=== PATIENT | male | born 1940 | race Caucasian/White ===

== ENCOUNTER 2019-06-22 10:44 | Outpatient (CLI) | payer MEDICARE, OTHER, SELFPAY ==
--- NOTE | ~2019-06-22 | XR_ITS ---
EXAMINATION: XR abdomen/kub 1V EXAM DATE: 06/22/2019 11:12 INDICATION: Right-sided lithotripsy 2 weeks ago. TECHNIQUE: Frontal projection of the upper abdomen, frontal projection lower abdomen/pelvis for inter pretation. Comparison is made to prior examination from 06/09/2019. FINDINGS: There is moderate to large amount of stool obscuring most of the right kidney. Density pro jecting over right kidney, could be within stool or nephrolithiasis. There are 3 persistent left-side d kidney stones suspected. Nonobstructive bowel gas pattern. Lung bases unremarkable. Ankylosing spon dylitis. IMPRESSION: 1. Right kidney obscured, possible right nephrolithiasis identified. 2. Left nephrolithiasis unchanged. Reviewed, dictated and finalized at location B. 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
== END 2019-06-22 10:45 | disposition home or self-care (01) ==
PROVIDERS: Visit Provider Urology
DX: N20.0 Calculus of kidney (principal)
CPT/HCPCS: 74018

== ENCOUNTER 2019-07-13 10:22 | Outpatient (CLI) | payer MEDICARE, OTHER, SELFPAY ==
--- NOTE | ~2019-07-13 | XR_ITS ---
XR abdomen/kub 1V 07/13/2019 10:38 Indication: Renal stones Procedure: KUB Comparison: Comparison to multiple prior studies sequentially, with oldest reviewed study dated 06/22. Findings: There are multiple bilateral renal stones. Bowel gas pattern is nonobstructive. No definite stones are identified in the expected course of ureters. There is diffuse idiopathic skeletal hypero stosis (DISH) of the thoracic spine. Impression: 1: Stable bilateral nephrolithiasis. Reviewed, dictated and finalized at location A. [employer] FIRST ASSISTANT Impression: 1: Stable bilateral nephrolithiasis.
== END 2019-07-13 10:23 | disposition home or self-care (01) ==
PROVIDERS: Visit Provider Urology
DX: N20.0 Calculus of kidney (principal)
CPT/HCPCS: 74018

== ENCOUNTER 2019-08-01 15:33 | Outpatient (CLI) | payer MEDICARE, OTHER, SELFPAY ==
--- NOTE | ~2019-08-01 | XR_ITS ---
EXAMINATION: XR abdomen/kub 1V EXAM DATE: 08/01/2019 15:48 INDICATION: Kidney stones. TECHNIQUE: Frontal projection of the upper abdomen, frontal projection lower abdomen/pelvis for inter pretation. Comparison is made to prior examination from 07/13/2019. FINDINGS: Bilateral nephrolithiasis is reidentified, although obscured by overlying bowel gas. There is no organomegaly. Moderate amount of colonic gas. Fused sacroiliac joints and flowing osteophytes, patient probably has ankylosing spondylitis. Lung bases unremarkable. IMPRESSION: 1. Bilateral nephrolithiasis, obscured by moderate colonic stool. 2. Ankylosing spondylitis. Reviewed, dictated and finalized at location A.
== END 2019-08-01 15:34 | disposition home or self-care (01) ==
LOC: ANHIMG 15:34
PROVIDERS: Visit Provider Urology
DX: N20.0 Calculus of kidney (principal); M45.9 Ankylosing spondylitis of unspecified sites in spine
CPT/HCPCS: 74018

== ENCOUNTER 2019-08-03 09:08 | Outpatient (CLI) | payer MEDICARE, OTHER, SELFPAY ==
[2019-08-03 09:47] LABS: INR 0.9; Prothrombin Time 12.2 Seconds (11.1-14.7)
[2019-08-03 09:48] LABS: Partial Thromboplastin Time 28.3 SECONDS (22.3-36.8)
== END 2019-08-03 09:09 | disposition home or self-care (01) ==
PROVIDERS: Visit Provider Urology
DX: N20.0 Calculus of kidney (principal)
CPT/HCPCS: 36415; 85610; 85730; 87086

== ENCOUNTER 2019-08-11 00:46 | Day surgery (SDC) | payer MEDICARE, OTHER, SELFPAY ==
[2019-07-31 13:19] VITALS: BMI 29.9
[2019-08-11] VITALS (8 sets, daily range): BP systolic 135–160; BP diastolic 69–88; PULSE 56–64; RESP 12–17; TEMP 36–36.5; O2SAT 92–100; BMI 31.7
--- NOTE | ~2019-08-11 | XR_ITS ---
EXAMINATION: XR abdomen/kub 1V EXAM DATE: 08/11/2019 06:29 INDICATION: For lithotripsy. Nephrolithiasis. TECHNIQUE: Frontal projection of the upper abdomen, frontal projection lower abdomen/pelvis for inter pretation. Comparison is made to prior examination from 08/01/2019. FINDINGS: There is expected amount of colonic stool and gas. No small bowel dilation, nonobstructiv e bowel gas pattern. Bilateral nephrolithiasis reidentified, indicated There is no organomegaly aldrich spected. Patient has ankylosing spondylitis. Lung bases unremarkable. IMPRESSION: Bilateral nephrolithiasis. Reviewed, dictated and finalized at location A. IMPRESSION: Bilateral nephrolithiasis.
[2019-08-11] MEDS: LACTATED RINGERS 1,000 ML 30 ML IV CONT (06:50)
--- NOTE | 2019-08-11 06:59 | WPDANESEPPF ---
Anes - Initial Pre Proc Eval Procedure: Operation Date: 08/11/19 07:30 Proposed Procedures p Right Renal Extracorporeal Shock Wave Lithotripsy - Saroj Abarca MD Date/Time: 08/11/19 06:59 Surgeon: Saroj Abarca MD Pre Op Diagnosis: Right Renal Stone Patient Data Age: 79 Gender: M Height: 5 ft 8.5 in Weight: 90.75 kg Last Vital Signs Temp 36.5 C 08/11/19 06:45 Pulse 64 08/11/19 06:45 Resp 17 08/11/19 06:45 BP 152/87 H 08/11/19 06:45 Pulse Ox 96 08/11/19 06:45 Allergies Allergy/AdvReac Type Severity Reaction Status Date / Time No Known Allergies Allergy Unverified 07/31/19 11:54 Home Medications Medication Instructions Recorded Confirmed Type amlodipine 10 mg PO DAILY 06/05/19 07/31/19 History atorvastatin 40 mg PO HS 06/05/19 07/31/19 History losartan 25 mg PO DAILY 06/05/19 07/31/19 History omeprazole 20 mg PO DAILY 06/05/19 07/31/19 History aspirin [Adult Low Dose Aspirin] 81 mg PO DAILY 07/31/19 07/31/19 History coQ10 (ubiquinol) 100 mg PO DAILY 07/31/19 07/31/19 History melatonin 3 mg PO HS PRN 07/31/19 07/31/19 History Patient hx anesthesia problems: none Family hx anesthesia problems: none PMFSH Past Medical History Medical History Gastroesophageal reflux disease HTN (hypertension) Hypercholesterolemia Kidney stones, calcium oxalate Obesity Anes - Eval Final PreProcedure Day of Procedure 08/11/19 06:59 Patient weight: obese Heart: regular rate and rhythm Lungs: clear to auscultation Airway: Mallampati scale class II Neurological: alert and oriented Last oral intake: >/= 8 hours ASA classification: II Emergent: no Anesthetic plan: proceed Anesthesia type and monitoring: general LMA and standard monitoring Informed Consent: The patient's anesthetic plan and its attendant risks and benefits were discussed with the patient/family/POA. Questions were solicited and answers provided to the satisfaction of the patient/family/POA.
--- NOTE | 2019-08-11 07:24 | WPDHPUPDATE1 ---
History and Physical Update Update Date/Time: 08/11/19 07:24 History and Physical has been reviewed, including an updated exam of the patient. There are NO changes in the patient's condition. Risks, benefits, and alternatives have been discussed and questions answered. Patient agrees to proceed with procedure.
[2019-08-11] MEDS: ceFAZolin 2 GM/D5W 50 ML 2 GM/50 ML BAG IVPB (07:30)
--- NOTE | 2019-08-11 08:09 | PM.PROC ---
Procedure Note - Detailed Date of procedure: 08/11/19 Pre-op diagnosis: Right Renal Stone Post-op diagnosis: same Procedure performed: Lithotripsy of right renal calculus lower pole 1 cm Description of procedure: Patient was taken to the operative suite and correctly identified. Once anesthesia was obtained the stone was localized in both planes. Two thousand five hundred shocks were given to the stone. It appears to be a fairly hard stone. He was taken recovery room stable condition. He will follow up in 7-10 days with a KUB. Anesthesia: GLMA Surgeon: Saroj Abarca MD Drains: No Packing: No Pathology: none sent Complications: No immediate complications Condition: stable Disposition: PACU
== END 2019-08-11 09:53 | disposition home or self-care (01) ==
PROVIDERS: Visit Provider Urology
PROC: (CPT 50590; principal; 2019-08-11 07:30)
DX: N20.0 Calculus of kidney (principal); I10 Essential (primary) hypertension; E78.00 Pure hypercholesterolemia, unspecified; K21.9 Gastro-esophageal reflux disease without esophagitis; Z79.82 Long term (current) use of aspirin; E66.9 Obesity, unspecified; Z68.31 Body mass index [BMI] 31.0-31.9, adult
CPT/HCPCS: 50590; 74018; J0690; J1100; J2250; J2405; J2704; J3010; J7120

== ENCOUNTER → 2019-08-24 08:30 | Outpatient (CLI) | payer MEDICARE, OTHER, SELFPAY ==
--- NOTE | ~2019-08-24 | XR_ITS ---
EXAMINATION: XR abdomen/kub 1V DATE: 08/24/2019 08:49 INDICATION: Calcium kidney stone. TECHNIQUE: A supine view of the abdomen on 2 radiographs was obtained. COMPARISON: Abdomen radiographs 08/11/2019, 08/01/2019, 07/13/2019 FINDINGS: There are no dilated loops of bowel. The kidneys are obscured by bowel. There are multiple stones in each kidney measuring up to at least 6 mm on the right and at least 14 mm on the left. IMPRESSION: 1. Bilateral kidney stones. Reviewed, dictated and finalized at location A. IMPRESSION: 1. Bilateral kidney stones.
== END ==
PROVIDERS: PCP Family Medicine; Visit Provider Urology
DX: N20.0 Calculus of kidney (principal)
CPT/HCPCS: 74018

== ENCOUNTER 2019-10-20 08:28 | Outpatient (CLI) | payer MEDICARE, OTHER, SELFPAY ==
--- NOTE | ~2019-10-20 | XR_ITS ---
EXAMINATION: XR abdomen/kub 1V DATE: 10/20/2019 08:46 INDICATION: Calcium kidney stones TECHNIQUE: A supine view of the abdomen on 2 radiographs was obtained. COMPARISON: 08/24/2019 FINDINGS: Bilateral nephrolithiasis with 10 mm and 5 mm stones in the mid to lower right kidney and 5 mm and 4 mm stones in the mid to lower left kidney . No stones seen along the course of the ureters. Normal bowel gas pattern. Mild atelectasis/scarring at the bilateral lung bases. There are bridging osteophytes at multiple levels in the spine, consist ent with diffuse idiopathic skeletal hyperostosis (DISH). Ankylosis at the bilateral sacroiliac joint s. 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 IMPRESSION: 1. Bilateral nephrolithiasis. Reviewed, dictated and finalized at location D.
== END 2019-10-20 08:29 | disposition home or self-care (01) ==
PROVIDERS: PCP Family Medicine; Visit Provider Urology
DX: N20.0 Calculus of kidney (principal)
CPT/HCPCS: 74018

== ENCOUNTER 2020-04-16 10:37 | Outpatient (CLI) | payer MEDICARE, OTHER, SELFPAY ==
--- NOTE | ~2020-04-16 | XR_ITS ---
XR abdomen/kub 1V 04/16/2020 11:02 Indication: Renal stones Procedure: KUB Comparison: 10/20/2019 Findings: Bowel gas pattern is nonobstructive. There are bilateral renal stones. Moderate lumbar spon dylosis. Lung bases are unremarkable. There is focal sclerosis overlying the sacrum, nonspecific libby l unchanged. Advanced degenerative changes of the hips. Impression: 1: Bilateral nephrolithiasis. Reviewed, dictated and finalized at location A. [employer] ASSOCIATE Impression: 1: Bilateral nephrolithiasis.
== END 2020-04-16 10:38 | disposition home or self-care (01) ==
PROVIDERS: PCP Family Medicine; Visit Provider Urology
DX: M16.0 Bilateral primary osteoarthritis of hip (principal); M47.816 Spondylosis without myelopathy or radiculopathy, lumbar region
CPT/HCPCS: 74018

== ENCOUNTER 2020-08-28 07:54 | Outpatient (CLI) | payer MEDICARE, OTHER, SELFPAY ==
--- NOTE | 2020-08-28 08:00 | ECG_ITS ---
Measurements Intervals [place] Rate: 68 P: 64 VA: 159 QRS: 13 QRSD: 93 T: 58 QT: 348 QTc: 372 Interpretive Statements SINUS RHYTHM BASELINE ARTIFACT- I, II, III NORMAL ECG Electronically Signed On 08-28-2020 8:11:44 CDT by Ty Arroyo D.O.
[2020-08-28 08:17] LABS: Basophils Absolute Auto 0.1 K/mm3 (0.0-0.1); Basophils Percent Auto 0.7 % (0.2-1.2); Eosinophils Absolute Auto 0.5 K/mm3 (0-0.3); Hematocrit 48.6 % (42.0-52.0); Hemoglobin 15.6 g/dL (14.0-18.0); Immature Granulocyte Absolute 0.01 K/mm3 (0.00-0.031); Immature Granulocyte Percent A 0.1 % (0-0.5); Lymphocytes Absolute Auto 1.64 K/mm3 (0.9-3.2); Lymphocytes Percent Auto 21.8 % (18.3-44.2); Mean Corpuscular HGB Conc 32.1 g/dl (32-36); Mean Corpuscular Hemoglobin 29.3 pg (26-34); Mean Corpuscular Volume 91.4 fl (80-100); Mean Platelet Volume 10.1 fl (7.4-10.4); Monocytes Absolute Auto 0.4 K/mm3 (0.1-0.6); Monocytes Percent Auto 5.7 % (2.6-8.5); Neutrophils Absolute Auto 4.9 K/mm3 (1.3-6.7); Neutrophils Percent Auto 65.7 % (45.5-73.1); Platelet Count Result 244 k/mm3 (150-375); Red Blood Count 5.32 M/mm3 (4.6-6.20); Red Cell Distribution Width 13.6 % (11.5-14.5); White Blood Count 7.5 K/mm3 (4.5-10.0)
[2020-08-28 08:28] LABS: Prothrombin Time 13.4 Seconds (11.1-14.7)
[2020-08-28 08:29] LABS: Anion Gap 3 mmol/L (8-16); Blood Urea Nitrogen 24 mg/dL (9-20); Calcium 8.7 mg/dL (8.4-10.2); Carbon Dioxide 34 mmol/L (22-30); Chloride 105 mmol/L (98-107); Estimated Glomerular Filt Rate 58; Glucose 130 mg/dL (75-110); Partial Thromboplastin Time 29.2 SECONDS (22.3-36.8); Sodium 142 mmol/L (137-145)
== END 2020-08-28 07:55 | disposition home or self-care (01) ==
LOC: ANHSURGERY 07:58
PROVIDERS: PCP Family Medicine; Visit Provider Urology
DX: Z01.812 Encounter for preprocedural laboratory examination (principal); I10 Essential (primary) hypertension; R31.0 Gross hematuria
CPT/HCPCS: 36415; 80048; 85025; 85610; 85730; 87086; 93005

== ENCOUNTER → 2020-08-31 06:57 | Outpatient (CLI) | payer MEDICARE, OTHER, SELFPAY ==
[2020-08-31 18:53] LABS: SARS-CoV-2 RNA PCR Negative
== END ==
PROVIDERS: PCP Family Medicine; Visit Provider Urology
DX: Z01.812 Encounter for preprocedural laboratory examination (principal); Z20.822 Contact with and (suspected) exposure to COVID-19
CPT/HCPCS: C9803; U0003; U0005

== ENCOUNTER 2020-09-03 02:57 | Day surgery (SDC) | payer MEDICARE, OTHER, SELFPAY ==
[2020-08-27 13:14] VITALS: BMI 30.2
[2020-09-03] VITALS (10 sets, daily range): BP systolic 150–186; BP diastolic 74–98; PULSE 57–70; RESP 12–16; TEMP 36.4–36.5; O2SAT 90–99
[2020-09-03] MEDS: LACTATED RINGERS 1,000 ML 30 ML IV CONT (10:05)
--- NOTE | 2020-09-03 10:09 | WPDHPUPDATE1 ---
History and Physical Update Update Date/Time: 09/03/20 10:09 History and Physical has been reviewed, including an updated exam of the patient. There are NO changes in the patient's condition. Risks, benefits, and alternatives have been discussed and questions answered. Patient agrees to proceed with procedure.
--- NOTE | 2020-09-03 10:39 | WPDANESEPPF ---
Anes - Initial Pre Proc Eval Procedure: Operation Date: 09/03/20 11:30 Proposed Procedures p Cystoscopy Bladder Biopsy - Saroj Abarca MD s Trans Urethral Resection Bladder Tumor, possible Trans Urethral Prostate Resection - Saroj Abarca MD Date/Time: 09/03/20 10:39 Surgeon: Saroj Abarca MD Pre Op Diagnosis: gross hematuria Patient Data Age: 80 Gender: M Height: 5 ft 9 in Weight: 95 kg Last Vital Signs Temp 36.5 C 09/03/20 09:43 Pulse 64 09/03/20 09:43 Resp 16 09/03/20 09:43 BP 167/85 H 09/03/20 09:43 Pulse Ox 97 09/03/20 09:43 Allergies Allergy/AdvReac Type Severity Reaction Status Date / Time No Known Allergies Allergy Unverified 09/03/20 10:17 Home Medications Medication Instructions Recorded Confirmed Type amlodipine 10 mg PO QAM 06/05/19 09/03/20 History atorvastatin 40 mg PO HS 06/05/19 09/03/20 History losartan 25 mg PO DAILY 06/05/19 09/03/20 History omeprazole 20 mg PO DAILY 06/05/19 09/03/20 History aspirin [Adult Low Dose Aspirin] 81 mg PO DAILY 07/31/19 09/03/20 History melatonin 3 mg PO HS PRN 07/31/19 09/03/20 History ascorbic acid (vitamin C) 500 mg PO BID 08/27/20 09/03/20 History cholecalciferol (vitamin D3) 125 mcg PO DAILY 08/27/20 09/03/20 History [Vitamin D3] Patient hx anesthesia problems: post op nausea/vomiting Family hx anesthesia problems: none PMFSH Past Medical History Medical History Gastroesophageal reflux disease HTN (hypertension) Hypercholesterolemia Kidney stones, calcium oxalate Obesity Social History Social History Smoking packs per day: 1 Smoking cigarettes per day: 20.0 Years smoked: 25 Smoking pack-years: 25.00 Smoking status: Former smoker Tobacco type: cigarettes Smoking end date: 11/22/79 Substance use: never Living arrangements: alone Additional living arrangements comments: Spiritual care concerns: No Anes - Eval Final PreProcedure Day of Procedure 09/03/20 10:39 Patient weight: obese Heart: regular rate and rhythm Lungs: decreased breath sounds Airway: Mallampati scale class II Neurological: alert and oriented Last oral intake: >/= 8 hours ASA classification: III Emergent: no Anesthetic plan: proceed Anesthesia type and monitoring: general LMA and standard monitoring Informed Consent: The patient's anesthetic plan and its attendant risks and benefits were discussed with the patient/family/POA. Questions were solicited and answers provided to the satisfaction of the patient/family/POA.
[2020-09-03] MEDS: ceFAZolin 2 GM/D5W 50 ML 2 GM/50 ML BAG IVPB (11:39)
[2020-09-03] MEDS: LIDOCAINE HCL 2% GEL UROJET 10 ML PKG MUCOUS MEM (11:53)
--- NOTE | 2020-09-03 12:27 | PM.PROC ---
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 [place] stone bladder stone 1.5 cm) Procedure performed: Cystoscopy with transurethral resection of bladder tumor small tumor 1.5 cm, holmium laser of bladder stone with stone extraction and Francois placement Description of procedure: Patient is taken the operative suite correctly identified. Once anesthesia was obtained he was placed in dorsal lithotomy position and prepped and draped usual sterile fashion. Twenty-four Surinamese resectoscope sheath inserted in the bladder. Patient is noted to have a 1.5 cm jackstone present. In addition he has a tumor at the bladder neck between the 5 and 7 o'clock position. We went ahead and resected bladder tumor and sent that for analysis. We fulgurated the base using a ball electrode. We then used holmium laser fiber to fragment stone in multiple pieces. These were then extracted and sent for analysis. Reinspection revealed no residual stones. Sixteen Sur[place]amese Francois was then placed with 10 cc in the balloon. Will plan on removing the Francois catheter on . Anesthesia: GLMA Surgeon: Saroj Abarca MD Drains: Yes Packing: No Pathology: yes Complications: No immediate complications Condition: stable Disposition: PACU
[2020-09-03] MEDS: fentaNYL CITRATE INJ (*CRX) 100 MCG/2 ML VIAL 25 MCG IV PUSH ×4 (13:01→13:12)
[2020-09-03] MEDS: ONDANSETRON INJ 4 MG/2 ML VIAL IV PUSH (14:00)
== END 2020-09-03 15:40 | disposition home or self-care (01) ==
PROVIDERS: PCP Family Medicine; Visit Provider Urology
PROC: 0TBB8ZX Excision of Bladder, Via Natural or Artificial Opening Endoscopic, Diagnostic (ICD-10-PCS; CPT 52204; principal; 2020-09-03 11:30)
PROC: 0TBB8ZZ Excision of Bladder, Via Natural or Artificial Opening Endoscopic (ICD-10-PCS; CPT 52234; 2020-09-03 11:30)
DX: R31.0 Gross hematuria (principal); N32.89 Other specified disorders of bladder; N21.0 Calculus in bladder; I10 Essential (primary) hypertension; E78.00 Pure hypercholesterolemia, unspecified; K21.9 Gastro-esophageal reflux disease without esophagitis; E66.9 Obesity, unspecified; Z68.30 Body mass index [BMI] 30.0-30.9, adult; Z87.891 Personal history of nicotine dependence; Z79.82 Long term (current) use of aspirin
CPT/HCPCS: 52234; 52317; 82365; 88300; 88305; J0690; J1100; J2405; J2704; J3010; J7120